=== PATIENT | male | born 1980 | race Two or more races ===

== ENCOUNTER 2021-06-19 04:30 | Day surgery (SDC) | payer OTHER ==
[2021-06-16 14:00] VITALS: BMI 29.0
[2021-06-19] MEDS ORDERED: BUPIVACAINE HCL/PF 0.5% (5MG/ML) 10 ML VIAL ONE (07:14)
[2021-06-19] MEDS ORDERED: LIDOCAINE HCL 1%, 10 MG/ML (20ML VIAL) ONE (07:15)
[2021-06-19] MEDS ORDERED: LIDOCAINE HCL 1%, 10 MG/ML (20ML VIAL) NR ONE ×2 (07:20→08:06)
[2021-06-19] MEDS ORDERED: BUPIVACAINE HCL/PF 0.5% (5MG/ML) 10 ML VIAL IJ ONE ×2 (07:20→08:06)
[2021-06-19] MEDS ORDERED: MIDAZOLAM HCL 2 MG/2 ML SINGLE DOSE VIAL ONE (07:25)
[2021-06-19] MEDS ORDERED: PROPOFOL 20 ML ONE ×3 (07:26)
[2021-06-19] MEDS ORDERED: SUCCINYLCHOLINE CHLORIDE 200 MG/10 ML SYRINGE ONE (07:31)
[2021-06-19] MEDS ORDERED: ROCURONIUM BROMIDE 100 MG/10 ML VIAL ONE (07:31)
[2021-06-19] MEDS ORDERED: BENZOIN/ALOE VERA/STORAX/TOLU 58 ML BOTTLE ONE (08:15)
[2021-06-19] MEDS ORDERED: BENZOIN/ALOE VERA/STORAX/TOLU 58 ML BOTTLE TP ONE (08:16)
[2021-06-19 13:11] VITALS: BP 140/70; PULSE 70; TEMP 98.6
== END 2021-06-19 09:30 | disposition home or self-care (01) ==
LOC: JASU-SURG 04:30
PROVIDERS: ATTEND Surgery
PROC: 0JB60ZZ Excision of Chest Subcutaneous Tissue and Fascia, Open Approach (ICD-10-PCS; 2021-06-19)
PROC: 0JB60ZZ Excision of Chest Subcutaneous Tissue and Fascia, Open Approach (ICD-10-PCS; principal; 2021-06-19 08:00)
DX: L72.0 Epidermal cyst (principal)
CPT/HCPCS: 88304-TC

== ENCOUNTER 2023-08-11 20:51 | Emergency (ER) | payer OTHER ==
[2023-08-11 20:59] VITALS: BP 135/91; PULSE 78; RESP 20; TEMP 98.5; BMI 29.5
[2023-08-11] MEDS ORDERED: ACETAMINOPHEN 325 MG TABLET (FP) ONE (23:52)
[2023-08-11] MEDS: ACETAMINOPHEN 325 MG TABLET (FP) PO ONE (23:53)
== END 2023-08-12 00:04 | disposition home or self-care (01) ==
LOC: JER 20:51
PROC: 0H99XZZ Drainage of Perineum Skin, External Approach (ICD-10-PCS; principal; 2023-08-11)
DX: L02.215 Cutaneous abscess of perineum (principal); R10.2 Pelvic and perineal pain
CPT/HCPCS: 99283-25